=== PATIENT | male | born 1960 | race Caucasian/White ===

== ENCOUNTER → 2020-01-26 | Outpatient (CLI) | payer OTHER ==
--- NOTE | 2020-01-26 13:26 | KCIC ---
Examination: CT LOW DOSE LUNG SCREENING History: Reason: TOBACCO ABUSE / History: Smoker 50 yrs., 1.5 pk/day; 75 pack-year smoking history Comparison/Correlation: None Findings: Axial images of the chest were obtained without contrast according to low dose lung cancer screening CT protocol. Sagittal and coronal reformatted images were provided. Tracheobronchial tree is unremarkable. No pneumothorax. No infiltrate or pleural effusion. Small hiatal hernia is present. Old left sixth and seventh rib fractures are present. Coronary nodule calcifications present. Fatty infiltration of the liver is present. Impression: Lungs rads category 1-negative. Annual low-dose lung cancer screening CT recommended. Hiatal hernia. Fatty infiltration of the liver. PQRS Compliance Statement: One or more of the following individualized dose reduction techniques were utilized for this examination: 1. Automated exposure control 2. Adjustment of the mA and/or kV according to patient size 3. Use of iterative reconstruction technique Electronically signed by: Cedrick Giles MD (01/26/2020 1:24 PM) [id number]
== END | disposition home or self-care (01) ==
LOC: KCIC CT 09:54
PROVIDERS: ATTEND Family Medicine
DX: Z12.2 Encounter for screening for malignant neoplasm of respiratory organs (principal); K44.9 Diaphragmatic hernia without obstruction or gangrene; K76.0 Fatty (change of) liver, not elsewhere classified; I25.10 Atherosclerotic heart disease of native coronary artery without angina pectoris; F17.210 Nicotine dependence, cigarettes, uncomplicated
CPT/HCPCS: G0297

== ENCOUNTER → 2021-09-08 | Outpatient (CLI) | payer OTHER ==
--- NOTE | 2021-09-08 09:00 | KCIC ---
EXAM: CT CHEST WITHOUT CONTRAST (LDCT LUNG CANCER SCREENING). HISTORY: Tobacco use, history of smoking TECHNIQUE: CT of the chest was performed without intravenous contrast using a low-dose lung screening protocol. Findings analysis is based on ACR Lung-RADS v1.1. *One or more of the following individual ized dose reduction techniques were utilized for this examination: 1. Automated exposure control. 2. Adjustment of the mA and/or kV according to patient size. 3. Use of iterative reconstruction technique. COMPARISON: 01/26/2020. FINDINGS: The visualized thyroid gland grossly appears unremarkable. Central airways are patent. Heart size gordon ssly appears unremarkable. Coronary artery calcifications identified. No radiologically significant m ediastinal lymphadenopathy. The lungs are clear. No obvious nodules or infiltrate identified. The vis ualized noncontrasted liver, spleen, adrenals grossly appears unremarkable. Cholecystectomy changes. Partially visualized cystic structure right kidney measuring 2.8 cm. Old posterior left rib fractures . IMPRESSION/RECOMMENDATION: 1. ACR Lung-RADS category: 1. Negative. 2. Continue annual screening with LDCT in 12 months. 3. Partially visualized cystic structure right kidney is difficult to characterize, consider follow-u p ultrasound. Electronically signed by: Emeterio Ibrahim MD (09/08/2021 8:58 AM) [id number]
== END ==
LOC: KCIC CT 08:04
PROVIDERS: ATTEND Family Medicine
DX: I25.10 Atherosclerotic heart disease of native coronary artery without angina pectoris (principal); N28.89 Other specified disorders of kidney and ureter; Z90.49 Acquired absence of other specified parts of digestive tract; F17.210 Nicotine dependence, cigarettes, uncomplicated
CPT/HCPCS: 71271